=== PATIENT | male | born 1990 | race Caucasian/White ===

== ENCOUNTER 2018-10-13 09:30 | Emergency (ER) | payer OTHER ==
[2018-10-13 10:39] LABS: HIV (1/2) Antibody/Antigen Non-Reactive (NonReactive); HIV 1/2 INDEX 0.09 S/CO (<1.00); Hep C IgG Ab Non-Reactive (NonReactive); Hep C Index 0.09 S/CO (0-0.79)
[2018-10-13 10:42] LABS: HBSAB Concentration 24.69 mIU/mL; Hep B Surf AB Reactive (NonReactive)
== END 2018-10-13 09:59 | disposition home or self-care (01) ==
LOC: ERS 09:30
DX: S61.213A Laceration without foreign body of left middle finger without damage to nail, initial encounter (principal); W22.8XXA Striking against or struck by other objects, initial encounter
CPT/HCPCS: 36415; 86706; 86803; 87389; 99282